=== PATIENT | male | born 1965 | race Caucasian/White ===

== ENCOUNTER 2020-09-27 05:13 | Emergency (ER) | payer BC ==
[~2020-09-27] VITALS: Ht 177.8 cm; Wt 113.4 kg
[~2020-09-27 05:13] MED LIST: ALLOPURINOL 10100 M1 PO; FISH OIL 1,001000 M2 PO; IBUPROFEN 600600 M1 PO; LEVSIN-SL0.125 MG SUBLING; NORCO 5-325 TA1 EACH PO; SENNA-DOCUSATE1 EACH PO; ZOFRAN ODT4 MG PO
[2020-09-27 06:33] LABS: ABSOLUTE NEUTROPHILS 3.2 thou/uL (1.4-8.2); EOSINOPHILS 4.9 % (0.0-3.0); HEMATOCRIT 45.1 % (42.0-52.0); LYMPHOCYTES 32.5 % (24.0-44.0); MCH 32.1 pg (26.0-34.0); MCHC 33.3 g/dL (28.0-37.0); MCV 96.3 fL (80.0-100.0); PLATELET COUNT 271 thou/uL (150-400); POLYS 50.6 % (36.0-66.0); RBC 4.68 mil/uL (4.50-6.00); RDW 13.9 % (10.5-14.5); WBC 6.3 thou/uL (4.0-11.0)
[2020-09-27 06:40] LABS: CALCIUM 9.7 mg/dL (8.5-10.1); CREATININE 1.9 mg/dL (0.7-1.3); POTASSIUM 3.6 mmol/L (3.5-5.1)
[2020-09-27 06:46] LABS: ALBUMIN 3.8 g/dL (3.4-5.0); TOTAL BILIRUBIN 0.4 mg/dL (0.2-1.0); TOTAL PROTEIN 7.7 g/dL (6.4-8.2)
[2020-09-27] MEDS ORDERED: NORCO 7.5-3251 EACH PO ×4 (09:33→10:28)
[2020-09-27] MEDS ORDERED: SENNA-DOCUSATE1 EAC1 PO ×4 (09:34→10:28)
[2020-09-27 09:47] LABS: URINE BILIRUBIN NEGATIVE (Negative); URINE BLOOD 3+ (Negative); URINE CLARITY CLEAR; URINE COLOR YELLOW; URINE GLUCOSE-RANDOM* TRACE (Negative); URINE KETONES NEGATIVE (Negative); URINE LEUKOCYTES-REFLEX NEGATIVE (Negative); URINE NITRITE-REFLEX NEGATIVE (Negative); URINE PROTEIN (DIPSTICK) NEGATIVE (Negative); URINE SPECIFIC GRAVITY 1.015 (1.005-1.035); URINE UROBILINOGEN 0.2 E.U./dl (0.2-1.0)
[2020-09-27 10:19] LABS: BACTERIA-REFLEX 1-9 Few /HPF (None Seen); CASTS None Seen /LPF (None Seen); CRYSTALS None Seen /LPF (None Seen); SQUAMOUS 0-3 Few /LPF (0-3); URINE RBC >20 Many /HPF (0-2); URINE WBC-REFLEX 0-5 Rare /HPF (0-5)
[2020-09-27 10:34] VITALS: BP 124/76
--- NOTE | 2020-09-28 07:25 | EKG ---
[place] [address] [facility] [place] [address] ELECTROCARDIOGRAM REPORT Name: ANNELIESE MUHAMMAD Room #: DEP Joel#: [id number] Admission: 09/27/20 Attend Phys: Discharge: 09/27/20 Date of : 65 Report #: [id number] [facility] ED Test Date: 2020-09-27 Test Time: 05:26:06 Pat Name: ANNELIESE MUHAMMAD Department: Room: Gender: M Nursery Laborer: [facility] : 1965 Requested By: Walter Cm Order Number: [id number] MD: Edwin Vieyra Measurements Intervals [place] Rate: 62 P: -4 NC: 133 QRS: 3 QRSD: 106 T: 37 QT: 454 QTc: 461 Interpretive Statements Sinus rhythm Atrial premature complex No previous ECG available for comparison Electronically Signed On 09-28-2020 7:25:28 FOLDING MACHINE SETTER by Edwin Vieyra [email or web address] <ELECTRONICALLY SIGNED> By: Edwin Vieyra MD, [facility] 09/28/20 0725 0526 0526 Edwin Vieyra MD, FACC /EPI
== END 2020-09-27 10:34 | disposition home or self-care (01) ==
LOC: ER 05:13
PROVIDERS: Emergency Medicine
DX: N20.1 Calculus of ureter (principal); M10.9 Gout, unspecified; Z79.1 Long term (current) use of non-steroidal anti-inflammatories (NSAID); Z79.899 Other long term (current) drug therapy

== ENCOUNTER 2020-09-29 08:28 | Emergency (ER) | payer BC ==
[~2020-09-29] VITALS: Ht 177.8 cm; Wt 113.4 kg
[~2020-09-29 08:28] MED LIST changes: +NORCO 7.5-3251 EACH PO; +SENNA-DOCUSATE1 EAC1 PO
[2020-09-29] MEDS ORDERED: FENOFIBRATE150 MG PO (08:46)
[2020-09-29] MEDS ORDERED: FLOMAX0.4 MG PO (08:51)
[2020-09-29] MEDS ORDERED: NORCO 10-325 T1 EACH PO (08:51)
[2020-09-29 08:54] VITALS: BP 150/81
== END 2020-09-29 08:54 | disposition home or self-care (01) ==
LOC: ER 08:28
DX: N20.1 Calculus of ureter (principal); M10.9 Gout, unspecified; Z79.899 Other long term (current) drug therapy; Z87.442 Personal history of urinary calculi